=== PATIENT | female | born 1955 | race Caucasian/White ===

== ENCOUNTER → 2017-05-22 | Outpatient (CLI) | payer BC ==
[~2017-05-22] MED LIST: ASPI81TA28 PO; CALC-354 PO; CLX/20 PO; HYDR200T5 PO; LEVO75TA5 PO; LISI-461 PO; PRT/40 PO
--- NOTE | 2017-05-22 11:49 | DIAGNOSTIC IMAGING REPORT ---
LEFT LOWER EXTREMITY WITHOUT CLINICAL HISTORY: 62 years-old Female presenting with LEFT PATELLA FX W/ ROUTINE HEALING. TECHNIQUE: Multidetector CT of the left lower extremity was performed without the use of intravenous contrast. IV contrast: None. A dose lowering technique was used consistent with the principles of ALARA (as low as reasonably achievable). COMPARISON: None. CT DOSE (mGy.cm): The estimated cumulative dose is 227.37 mGy.cm. FINDINGS: [employer] [facility] topogram: Unremarkable. Longitudinally oriented fracture plane across the lateral aspect of the patella. Mild lateral subluxation of the patella relative to the femoral trochlear groove. There is minimal comminution of the fracture plane with apparent cortical step-off and impaction of an interposed fracture fragment. Articular surface depression of 2 mm (series 3 image 162; series 301 image 67). No significant bridging callus is evident. No other fracture is identified. Small joint effusion. Knee joint congruent. Mild prepatellar subcutaneous edema. No infiltration of Hoffa's fat pad. Remaining soft tissues within normal limits. 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 Articular surface depression of 2 mm secondary to impaction of an interposed fracture fragment. Electronically signed by: Merrill Gonzales M.D. 05/22/2017 11:48 AM Dictated Date/Time: 05/22/2017 11:43 AM
== END | disposition home or self-care (01) ==
LOC: C.CTS 11:24
PROVIDERS: ATTEND Orthopaedic Surgery
DX: S82.025D Nondisplaced longitudinal fracture of left patella, subsequent encounter for closed fracture with routine healing (principal); X58.XXXD Exposure to other specified factors, subsequent encounter

== ENCOUNTER → 2017-06-06 | Outpatient (CLI) | payer BC | END | disposition home or self-care (01) | LOC: C.CPL 08:25 | PROVIDERS: ATTEND Orthopaedic Surgery | DX: S82.025D Nondisplaced longitudinal fracture of left patella, subsequent encounter for closed fracture with routine healing (principal); X58.XXXD Exposure to other specified factors, subsequent encounter ==